=== PATIENT | male | born 1995 | race Caucasian/White ===

== ENCOUNTER 2018-04-18 11:36 | Emergency (ER) | payer MEDICAID ==
[2018-04-18 11:41] VITALS: BP_SYST 134
[2018-04-18] MEDS ORDERED: NACL 0.9% 1,000 ML IV ONE (12:00)
[2018-04-18] MEDS ORDERED: PROMETHAZINE HCL 25 MG/ML AMP IVP ONE (12:00)
[2018-04-18] MEDS ORDERED: DIPHENHYDRAMINE INJ 50 MG/ML VIAL IVP ONE (12:15)
[2018-04-18] MEDS ORDERED: KETOROLAC TROMETHAMINE 30 MG VIAL IVP ONE (12:15)
[2018-04-18] MEDS ORDERED: NS 500 ML IV ONE (12:15)
[2018-04-18 12:18] LABS: BASOPHILS # (AUTO) 0.1 K/uL (0.0-0.2); BASOPHILS % (AUTO) 1.3 % (0.0-2.0); EOSINOPHILS % (AUTO) 0.6 % (0.0-4.0); HEMATOCRIT 49.4 % (36-54); HEMOGLOBIN 16.4 g/dL (14.0-18.0); LYMPHOCYTES % (AUTO) 17.4 % (20.5-51.5); MEAN CORPUSCULAR HEMOGLOBIN 31 pg (27-31); MEAN CORPUSCULAR HGB CONC 33 % (32-36); MEAN CORPUSCULAR VOLUME 92 fL (79.0-98.0); MONOCYTES # (AUTO) 0.4 K/uL (0.0-1.0); MONOCYTES % (AUTO) 7.7 % (1.7-9.3); NEUTROPHILS # (AUTO) 4.1 K/uL (1.8-7.7); PLATELET COUNT (AUTO) 241 K/uL (130-430); RED BLOOD CELL COUNT(AUTO) 5.38 MIL/uL (4.2-6.2); RED CELL DISTRIBUTION WIDTH 12.1 % (9.0-15.0); WHITE BLOOD COUNT (AUTO) 5.6 K/uL (4.8-10.8)
[2018-04-18 12:38] LABS: CALCIUM 9.3 mg/dL (8.4-11.0); CREATININE 0.81 mg/dL (0.55-1.30); POTASSIUM 3.7 mmol/L (3.5-5.1)
[2018-04-18 12:43] LABS: ALBUMIN 4.3 g/dL (3.4-4.8); TOTAL BILIRUBIN 0.8 mg/dL (0.0-1.0)
[2018-04-18 13:43] VITALS: BP_SYST 116
== END 2018-04-18 13:43 | disposition home or self-care (01) ==
LOC: SED 11:36
DX: G44.209 Tension-type headache, unspecified, not intractable (principal); F41.9 Anxiety disorder, unspecified; R03.0 Elevated blood-pressure reading, without diagnosis of hypertension
CPT/HCPCS: 36415; 80053; 85025; 96374; 96375; 99284; J1200; J1885; J2550; J7030; J7040

== ENCOUNTER 2019-03-16 20:23 | Emergency (ER) | payer MEDICAID ==
[~2019-03-16] VITALS: Ht 172.7 cm; Wt 61.2 kg
[2019-03-16 20:37] VITALS: BP_SYST 132
[2019-03-17 00:25] VITALS: BP_SYST 128
== END 2019-03-17 00:25 | disposition home or self-care (01) ==
LOC: SED 20:23
DX: R51 Headache (principal); F41.9 Anxiety disorder, unspecified
CPT/HCPCS: 70450-TC; 99284

== ENCOUNTER 2019-05-30 14:44 | Emergency (ER) | payer MEDICAID ==
[~2019-05-30] VITALS: Ht 172.7 cm; Wt 60.8 kg
--- NOTE | 2019-05-30 14:45 | NUR ---
Patient to ER bed H1 to gown for evaluation. Side rails up.
[2019-05-30 14:48] VITALS: BP_SYST 136
--- NOTE | 2019-05-30 14:55 | NUR ---
Patient arrived in the ED c/o sudden onset SOB and cough for 2 weeks. Patient is alert and oriented x4, speaking in full sentences, ambulating with a steady gait. Informed of the wait time. Instructed to notify ED staff for any changes or worsening of symptoms. Patient verbalized understanding.
--- NOTE | 2019-05-30 15:00 | NUR ---
AI Zarate at bedside examining patient.
--- NOTE | 2019-05-30 16:40 | NUR ---
X-ray done at bedside.
--- NOTE | 2019-05-30 17:02 | NUR ---
Patient given written and verbal discharge instructions and verbalizes understanding. ER MD discussed with patient the results and treatment provided. Patient in stable condition. ID arm band removed. Rx of Motrin, Cough syrup, Zpak given. Patient educated on pain management and to follow up with PMD. Pain Scale 0/10. Opportunity for questions provided and answered. Medication side effect fact sheet provided.
[2019-05-30 17:15] VITALS: BP_SYST 136
== END 2019-05-30 17:15 | disposition home or self-care (01) ==
LOC: SED 14:44
DX: R05 Cough (principal); R03.0 Elevated blood-pressure reading, without diagnosis of hypertension; F41.9 Anxiety disorder, unspecified
CPT/HCPCS: 71045; 99283

== ENCOUNTER 2019-07-13 11:13 | Emergency (ER) | payer MEDICAID ==
[~2019-07-13] VITALS: Ht 172.7 cm; Wt 61.2 kg
[2019-07-13 11:40] VITALS: BP_SYST 129
--- NOTE | 2019-07-13 13:25 | NUR ---
Patient to ER bed hallway for evaluation. Side rails up.
--- NOTE | 2019-07-13 13:26 | NUR ---
ER TEDDY Calderon examining patient.
--- NOTE | 2019-07-13 13:26 | NUR ---
Patient is awake, alert, and oriented x4. Patient is complaining of productive cough x2 weeks, and left neck strain since last night.
[2019-07-13 13:40] VITALS: BP_SYST 118
--- NOTE | 2019-07-13 13:40 | NUR ---
Patient given written and verbal discharge instructions and verbalizes understanding. ER MD discussed with patient the results and treatment provided. Patient in stable condition. ID arm band removed. Rx of zpak, albuterol, tessalon perles, promethazine given. Patient educated on pain management and to follow up with PMD. Pain Scale 6/10, [employer]ENSATION Yumiko is aware. Opportunity for questions provided and answered. Medication side effect fact sheet provided.
== END 2019-07-13 13:40 | disposition home or self-care (01) ==
LOC: SED 11:13
DX: R05 Cough (principal); R03.0 Elevated blood-pressure reading, without diagnosis of hypertension
CPT/HCPCS: 36415; 86710; 99283

== ENCOUNTER 2023-06-06 20:37 | Emergency (ER) | payer OTHER, MEDICAID ==
[~2023-06-06] VITALS: Ht 172.7 cm; Wt 61.2 kg
[2023-06-06 20:45] VITALS: BP_SYST 145; PULSE 97; RESP 17; TEMP 99; O2SAT 97
[2023-06-06] MEDS ORDERED: NAPR-1172 PO (21:29)
[2023-06-06 21:32] VITALS: BP_SYST 145; PULSE 97; RESP 17; TEMP 99; O2SAT 97
== END 2023-06-06 21:35 | disposition home or self-care (01) ==
LOC: SED 20:37
DX: S33.5XXA Sprain of ligaments of lumbar spine, initial encounter (principal); F41.9 Anxiety disorder, unspecified; Z79.899 Other long term (current) drug therapy; X50.0XXA Overexertion from strenuous movement or load, initial encounter; Y93.89 Activity, other specified; Y92.89 Other specified places as the place of occurrence of the external cause; Y99.8 Other external cause status
CPT/HCPCS: 71045; 99283